=== PATIENT | female | born 1960 | race Caucasian/White ===

== ENCOUNTER → 2016-11-07 | Outpatient (CLI) | payer BC ==
[~2016-11-07] MED LIST: GADAVIST IV PRN
--- NOTE | 2016-11-07 11:13 | DIAGNOSTIC IMAGING REPORT ---
Brain MRI WITH AND WITHOUT CONTRAST HISTORY: Cerebral hemorrhage. Aneurysm. TECHNIQUE: Multiplanar multisequence MRI of the brain was performed both before and after the intravenous administration of contrast. COMPARISON STUDY: None. FINDINGS: There are no areas of restricted diffusion to suggest acute infarction. Incidental note is made of a partially empty sella. There are retention cysts within the bilateral maxillary sinuses. The mastoid air cells are clear. The ventricles and sulci are within normal limits for age. There is no mass, hematoma, midline shift. The major vascular flow-voids at the skull base are well maintained. Tiny linear focus of enhancement within the left occipital lobe on axial image 13 favors a small developmental venous anomaly. This is considered a normal variant.. IMPRESSION: No acute intracranial abnormality. Electronically signed by: Arnol Pulido M.D. 11/07/2016 11:12 AM Dictated Date/Time: 11/07/2016 10:58 AM
== END | disposition home or self-care (01) ==
LOC: C.MRI 08:41
PROVIDERS: ATTEND Psychiatry & Neurology Neurology
DX: I67.1 Cerebral aneurysm, nonruptured (principal); Z87.898 Personal history of other specified conditions